=== PATIENT | female | born 1990 | race American Indian/Alaskan Native ===

== ENCOUNTER 2021-08-11 08:38 | Day surgery (SDC) | payer MEDICAID ==
[~2021-08-11 08:38] MED LIST: METHYLENE BLUE 50 MG/10 ML AMP ONE
[2021-08-11] MEDS ORDERED: LACTATED RINGERS 1,000 ML IV SCH (09:15)
[2021-08-11] MEDS ORDERED: ceFAZolin/STERILE WATER 2 GM/20 ML SYRINGE IV NR (10:00)
[2021-08-11] MEDS ORDERED: HYDROmorphone 1 MG/1 ML INJ IV PRN ×2 (10:06)
[2021-08-11] MEDS ORDERED: ONDANSETRON 4 MG/2 ML INJ IV PRN (10:06)
--- NOTE | 2021-08-11 10:06 | Anesthesia Consultation ---
Anesthesia Consult and Med Hx Date of service: 08/11/21 - Airway Anesthetic Teeth Evaluation: Caps, Crowns ROM Head & Neck: Adequate Mental/Hyoid Distance: Adequate Mallampati Class: Class II Intubation Access Assessment: Good - Pre-Operative Health Status ASA Pre-Surgery Classification: ASA2 Proposed Anesthetic Plan: General - Pulmonary Hx Smoking: Yes - Central Nervous System Hx Psychiatric Problems: No - Other Systems Hx Alcohol Use: Yes (Occas) Hx Cancer: No Hx Obesity: No
--- NOTE | 2021-08-11 10:06 | Anesthesia Day of Surgery ---
Anesthesia Day of Surgery - Day of Surgery Patient Examined: Yes Patient H&P Reviewed: Yes Patient is NPO: Yes
[2021-08-11 10:43] LABS: Basophils # (Auto) 0.1 K/mm3 (0.0-0.1); Basophils % (Auto) 1.1 % (0.0-1.8); Eosinophils # (Auto) 0.3 K/mm3 (0.0-0.4); Eosinophils % (Auto) 5.3 % (0.0-4.3); Hematocrit 36.5 % (30.3-42.9); Hemoglobin 11.8 gm/dl (10.1-14.3); Lymphocytes # (Auto) 2.1 K/mm3 (1.2-5.4); Lymphocytes % (Auto) 33.7 % (13.4-35.0); Mean Corpuscular HGB Conc 32 % (30-34); Mean Corpuscular Volume 81 fl (79-97); Monocytes # (Auto) 0.3 K/mm3 (0.0-0.8); Monocytes % (Auto) 5.3 % (0.0-7.3); Platelet Count 323 K/mm3 (140-440); Red Cell Distribution Width 13.5 % (13.2-15.2)
[2021-08-11] MEDS ORDERED: MAGNESIUM OXIDE 400 MG TAB PO ONE (11:00)
[2021-08-11] MEDS ORDERED: MIDAZOLAM 2 MG/2 ML INJ IV NR (11:00)
[2021-08-11] MEDS ORDERED: ACETAMINOPHEN 500 MG TAB PO ONE (11:00)
[2021-08-11] MEDS ORDERED: CELECOXIB 200 MG CAP PO NR (11:00)
[2021-08-11] MEDS ORDERED: MIDAZOLAM 2 MG/2 ML INJ ONE (12:58)
[2021-08-11] MEDS ORDERED: fentaNYL 100 MCG/2 ML INJ ONE (12:59)
[2021-08-11] MEDS ORDERED: propofoL 200 MG/20 ML VIAL IV ONE (12:59)
[2021-08-11] MEDS ORDERED: KETAMINE/STERILE WATER 50 MG/ML SYRINGE ONE (13:03)
[2021-08-11] MEDS ORDERED: LIDOCAINE MPF (2%) 20 MG/1 ML VIAL 5 ML ONE (14:10)
[2021-08-11] MEDS ORDERED: dexAMETHasone 20 MG/5 ML VIAL ONE (14:11)
[2021-08-11] MEDS ORDERED: HYDROmorphone 1 MG/1 ML INJ ONE (14:24)
[2021-08-11] MEDS ORDERED: ONDANSETRON 4 MG/2 ML INJ ONE (15:08)
[2021-08-11] MEDS ORDERED: NEOSTIGMINE 10MG/10 ML INJ MDV ONE (15:13)
[2021-08-11] MEDS ORDERED: GLYCOPYRROLATE 0.4 MG/2 ML INJ ONE (15:14)
[2021-08-11] MEDS ORDERED: ROCURONIUM 50 MG/5 ML INJ IV ONE ×2 (15:23)
--- NOTE | 2021-08-11 15:32 | Operative Report ---
Operative Report Operative Report: Date of surgery: August 11, 2021 Admission diagnosis: Right sided pelvic pain, dyspareunia, peritoneal adhesions Postoperative diagnosis: The same, filmy peritoneal adhesions involving the ascending colon as well as the sigmoid colon to the iliac fossa. An unstable right ovary attached to the infundibulopelvic ligament only and without the stabilizing effects of the absent right fallopian tube. Procedure: Diagnostic laparoscopic. Lysis of adhesions Surgeon: Susan Schwab MD Anesthesia: General anesthesia Anesthesiologist: Andie REZA Estimated blood loss: Less than 5 cc Complications: None Findings: The uterus, left fallopian tube and ovaries were all grossly normal. The small bowels, omentum, inferior dome of the diaphragm, the liver were all grossly normal. There were filmy peritoneal adhesions seen involving the ascending colon as well as the sigmoid colon to the paracolic fossa. The vermiform appendix was visualized and was grossly normal. The cecum was visualized and was also grossly normal. Procedure in details: Patient was taken to the operating room and in the straight supine position she was given general anesthesia. Patient was then put in the lithotomy position and prepped in the vulvar vagina and abdomen. The drapes were placed. A timeout was done. Wished to go ahead from the electrician yard, an indwelling Acuna catheter was inserted. A sponge forceps was attached to the anterior lip of the cervix and was used to anchor the acorn cannula. At the navel a small stab incision was made in the sub-umbilical aspect. The Veress needle was carefully inserted into the peritoneal cavity, making sure to point the tip of this instruments towards the free hollow of the pelvis. The Veress needle was thereafter aspirated and no blood was drawn. Veress needle was then flushed through with a small quantity of sterile normal saline without any resistance. About 3 and half liters of carbon dioxide was used to insufflate the peritoneal cavity. After removing the Veress needle, a 5 mm trocar with its port was inserted into the peritoneal cavity and again making sure to point the tip of this instrument into the free hollow of the pelvis. The laparoscope was subsequently confirmed successful access to the peritoneal cavity. 1 additional 5 mm ports was placed in the left flank. The endoscopic blunt probe was used to tease apart the adhesions described above. The LigaSure was also used minimally. There was no bleeding intraperitoneally. Hemostasis was very good. Careful inspection of the peritoneal cavity was once again done. The pneumoperitoneum was then expelled and all instruments were removed from the abdomen. Oozing from the stab incisio ns was controlled with the Bovie, plus one stitch of #1 Vicryl before each incision was sealed with Dermabond. The patient tolerated the procedure well. There were no complications. Blood loss was estimated at less than 5 cc. All sponges and instruments were accounted for. The patient was transferred in satisfactory condition to the recovery room.
--- NOTE | 2021-08-11 16:54 | Post Anesthesia Evaluation ---
- Post Anesthesia Evaluation Patient Participated: Yes Airway Patent: Yes Stable Respiratory Function: Yes Nausea/Vomiting: No Temp > 96.8F: Yes Pain Manageable: Yes Adequeate Hydration: Yes Anesthesia Complications: No Block Receding Appropriately: Not Applicable Patient on Ventilator: No
[2021-08-12 02:57] VITALS: BP 144/82
== END 2021-08-11 17:50 | disposition home or self-care (01) ==
LOC: OR 08:38
PROVIDERS: ATTEND Obstetrics & Gynecology
DX: K66.0 Peritoneal adhesions (postprocedural) (postinfection) (principal); N94.10 Unspecified dyspareunia; R10.2 Pelvic and perineal pain; K21.9 Gastro-esophageal reflux disease without esophagitis; F17.210 Nicotine dependence, cigarettes, uncomplicated; Z79.899 Other long term (current) drug therapy; Z98.890 Other specified postprocedural states
CPT/HCPCS: 36415; 58660; 81025; 85025; 86850; 86900; 86901; J0690; J1100; J1170; J2250; J2405; J2704; J2710; J3010; J3490; J7120; Q9968